=== PATIENT | female | born 1945 | race Caucasian/White ===

== ENCOUNTER → 2016-09-21 10:00 | Outpatient (CLI) | payer MEDICARE, OTHER ==
[2012-12-16 13:05] VITALS: BMI 24.1
[2016-09-21 11:53] LABS: T4 THYROXIN - FREE 1.26 ng/dL (0.76-1.46); THYROID STIMULATING HORMONE 2.36 uIU/mL (0.36-3.74)
== END | disposition home or self-care (01) ==
LOC: D.US 10:00 → D.LAB 11:30 → D.RAD 11:45 → D.NM 13:00
PROVIDERS: Internal Medicine Gastroenterology
DX: K59.00 Constipation, unspecified (principal); R11.0 Nausea; R14.2 Eructation

== ENCOUNTER → 2016-10-05 11:12 | Outpatient (CLI) | payer MEDICARE, OTHER ==
[2012-12-16 13:05] VITALS: BMI 24.1
== END | disposition home or self-care (01) ==
LOC: D.NM 11:12
DX: R11.0 Nausea (principal); R14.2 Eructation